=== PATIENT | female | born 1990 | race American Indian/Alaskan Native ===

== ENCOUNTER 2019-08-03 14:22 | Emergency (ER) | payer SELFPAY ==
--- NOTE | 2019-08-03 15:56 | Emergency Department Report ---
Blank Doc - Documentation Documentation: 29-year-old female that presents with new onset of headache and vomiting. This initial assessment/diagnostic orders/clinical plan/treatment(s) is/are subject to change based on patient's health status, clinical progression and re- assessment by fellow clinical providers in the ED. Further treatment and workup at subsequent clinical providers discretion. Patient/guardians urged not to elope from the ED as their condition may be serious if not clinically assessed and managed. Initial orders include: 1- Patient sent to [facility] for further evaluation and treatment 2- CT head 3- UA
[2019-08-03 16:00] VITALS: BP 108/73
[2019-08-03 16:28] LABS: Bacteria,Urine 2+ /HPF (Negative); Bilirubin,Urine NEG (Negative); Blood,Urine NEG (Negative); Color,Urine Yellow (Yellow); Mucus,Urine 1+ /HPF; Protein,Urine <15 mg/dL mg/dL (Negative); Urobilinogen,Urine < 2.0 mg/dL (<2.0)
[2019-08-03 16:32] LABS: HCG Qualitative,Urine Negative (Negative)
--- NOTE | 2019-08-03 16:57 | Cat Scan Report ---
CT BRAIN: 08/03/2019 INDICATION / CLINICAL INFORMATION: headache. COMPARISON: None available. FINDINGS: BRAIN/INTRACRANIAL STRUCTURES: Unenhanced CT images of the brain demonstrate no evidence of acute int racranial abnormality. Ventricles and sulci are normal in size and shape. There is no evidence of acute ischemic injury, hemorrhage, or mass. There are no abnormal extra-axial fluid collections. EXTRACRANIAL STRUCTURES: Unremarkable. IMPRESSION: Negative unenhanced CT of the brain. All CT scans at this location are performed using dose reduction to ALARA by means of automated expos ure control. Signer Name: Justin Rice MD Signed: 08/03/2019 4:53 PM Workstation Name: [id number]
== END 2019-08-03 16:15 | disposition left against medical advice (07) ==
LOC: ED 14:22
DX: R11.10 Vomiting, unspecified (principal); R51 Headache; Z53.21 Procedure and treatment not carried out due to patient leaving prior to being seen by health care provider
CPT/HCPCS: 70450; 81001; 81025

== ENCOUNTER 2019-08-03 21:59 | Emergency (ER) | payer SELFPAY ==
[2019-08-03 22:06] VITALS: BP 119/55
== END 2019-08-03 23:00 | disposition left against medical advice (07) ==
LOC: ED 21:59
DX: R11.10 Vomiting, unspecified (principal); Z53.21 Procedure and treatment not carried out due to patient leaving prior to being seen by health care provider

== ENCOUNTER 2019-08-04 10:33 | Emergency (ER) | payer SELFPAY ==
[2019-08-04 10:38] VITALS: BP 113/75
[2019-08-04] MEDS ORDERED: dexAMETHasone 4 MG/ML VIAL IM ONE (11:20)
[2019-08-04] MEDS ORDERED: SULFAMETHOXAZOLE/TRIMETHOPRIM 800/160MG DS TAB PO ONE (11:21)
[2019-08-04] MEDS ORDERED: IBUPROFEN 800 MG TAB PO ONE (11:21)
--- NOTE | 2019-08-04 11:22 | Emergency Department Report ---
ED Recheck HPI - General Chief Complaint: Headache Stated Complaint: HEADACHE Time Seen by Provider: 08/04/19 11:14 Source: patient Mode of arrival: Ambulatory Limitations: No Limitations - History of Present Illness Initial Comments: Patient is a 29-year-old female that comes to the emergency room today complaining of a headache. Note that she was here in 12:02 last night but left because she says she was not seen. Patient had a head CT that was negative. She had a UA that was positive for nitrates. Patient denies any fever or back pain. She is ambulatory. She denies any history of headaches. She denies any fall or trauma. She has not vomiting. - Related Data Previous Rx's Medication Instructions Recorded Last Taken Type Acetaminophen [Acetaminophen 8 650 mg PO Q8H PRN #25 tablet.er 08/04/19 Unknown Rx Hour] Ibuprofen [Motrin] 800 mg PO Q8HR PRN #30 tablet 08/04/19 Unknown Rx Sulfamethoxazole/Trimethoprim 1 each PO BID #10 tablet 08/04/19 Unknown Rx [Bactrim DS TAB] Allergies Allergy/AdvReac Type Severity Reaction Status Date / Time No Known Allergies Allergy Verified 08/04/19 10:34 ED Review of Systems ROS: Stated complaint: HEADACHE Other details as noted in HPI Comment: All other systems reviewed and negative ED Past Medical Hx - Past Medical History Hx Hypertension: Yes Additional medical history: low BP - Surgical History Past Surgical History?: No - Family History Family history: no significant - Social History Smoking Status: Never Smoker Substance Use Type: None - Medications Home Medications: Home Medications Medication Instructions Recorded Confirmed Last Taken Type Acetaminophen [Acetaminophen 8 650 mg PO Q8H PRN #25 tablet.er 08/04/19 Unknown Rx Hour] Ibuprofen [Motrin] 800 mg PO Q8HR PRN #30 tablet 08/04/19 Unknown Rx Sulfamethoxazole/Trimethoprim 1 each PO BID #10 tablet 08/04/19 Unknown Rx [Bactrim DS TAB] ED Physical Exam - General Limitations: No Limitations General appearance: alert, in no apparent distress - Head Head exam: Present: atraumatic, normocephalic - Eye Eye exam: Present: normal appearance - ENT ENT exam: Present: mucous membranes moist - Neck Neck exam: Present: normal inspection - Respiratory Respiratory exam: Present: normal lung sounds bilaterally. Absent: respiratory distress - Cardiovascular Cardiovascular Exam: Present: regular rate, normal rhythm. Absent: systolic murmur, diastolic murmur, rubs, gallop - GI/Abdominal GI/Abdominal exam: Present: soft, normal bowel sounds - Extremities Exam Extremities exam: Present: normal inspection - Back Exam Back exam: Present: normal inspection - Neurological Exam Neurological exam: Present: alert, oriented X3 - Psychiatric Psychiatric exam: Present: normal affect, normal mood - Skin Skin exam: Present: warm, dry, intact, normal color. Absent: rash ED Course Vital Signs 08/04/19 10:36 Temperature 98.7 F Pulse Rate 84 Respiratory 18 Rate Blood Pressure 113/75 O2 Sat by Pulse 96 Oximetry ED Recheck MDM - Core Measures Measure Exclusions: not indicated - Medical Decision Making Results from last night's visit reviewed. CT negative. UA noted. Patient medicated for pain and with Bactrim for the UTI. [employer] Systems was used to provide patient with discharge planning and education. Vital Signs 08/04/19 10:36 Temperature 98.7 F Pulse Rate 84 Respiratory 18 Rate Blood Pressure 113/75 O2 Sat by Pulse 96 Oximetry Patient being discharged to home with PCP follow-up. Critical care attestation.: If time is entered above; I have spent that time in minutes in the direct care of this critically ill patient, excluding procedure time. ED Disposition Clinical Impression: Headache, UTI (urinary tract infection) Disposition: TO HOME OR SELFCARE Is pt being admited?: No Does the pt Need Aspirin: No Condition: Stable Additional Instructions: follow up with pcp referral below meds as ordered hydrate well with water urinate often Prescriptions: Acetaminophen [Acetaminophen 8 Hour] 650 mg PO Q8H PRN #25 tablet.er PRN Reason: Pain , Severe (7-10) Sulfamethoxazole/Trimethoprim [Bactrim DS TAB] 1 each PO BID #10 tablet Ibuprofen [Motrin] 800 mg PO Q8HR PRN #30 tablet PRN Reason: Pain, Moderate (4-6) Referrals: JUDY LEDESMA MD [Staff Physician] - 3-5 Days Time of Disposition: 11:20
== END 2019-08-04 12:51 | disposition home or self-care (01) ==
LOC: ED 10:33
DX: R51 Headache (principal); N39.0 Urinary tract infection, site not specified
CPT/HCPCS: 96372; 99282; J1100